=== PATIENT | female | born 1935 | race Caucasian/White ===

== ENCOUNTER → 2017-06-06 | Outpatient (CLI) | payer MEDICARE ==
[~2017-06-06] MED LIST: ADULT LOW DOSE81 MG PO; AVALIDE; CIPROFLOXACIN500 M1 PO; DIFLUCAN150 MG PO; FLUZONE 2045 MCG/011; HCTZ; HCTZ PO; INVANZ 1GM/NS 101 GM; LISINOPRIL40 MG PO; MACROBID 100 M100 M2 PO; NITROGLYCERIN0.4 MG SL; PNEUMOVAX25 MCG/0.5; PYRIDIUM200 MG PO; VITAMIN B-12500 MCG PO
--- NOTE | 2017-06-06 11:07 | 2DMMODE ---
[place] [address] 2 D/M-MODE ECHOCARDIOGRAM Name: TOAN GAMBLE Room: [facility]#: [id number] Admission: 06/06/17 Attend Phys: Marycarmen Murray DO Discharge: Date of : 39 Date of Service: 06/06/17 1106 Report #: [id number] THIS REPORT FOR: //name// APPROVED REPORT Study performed: 06/06/2017 09:09:43 EXAM: Comprehensive 2D, Doppler, and color-flow Echocardiogram Patient Location: Out-Patient Status: routine BSA: 2.02 HR: 72 bpm BP: 138/90 mmHg Other Information Study Quality: Good Indications Murmur 2D Dimensions LVEF(%): 57.42 (>50%) IVSd: 12.13 (7-11mm) LVOT Diam: 20.26 (18-24mm) LVDd: 37.39 mm PWd: 11.58 (7-11mm) Ascending Ao: 33.50 (22-36mm) LVDs: 26.32 (25-40mm) Aortic Root: 28.86 mm Saleem's LVEF: 57.42 % Volumes Left Atrial Volume (Systole) LA ESV Index: 22.00 mL/m2 Aortic Valve AoV Peak Ronnell.: 1.41 m/s AO Peak Gr.: 7.97 mmHg LVOT Max P.03 mmHg AO Mean Gr.: 4.49 mmHg LVOT Mean P.07 mmHg LVOT Max V: 1.23 m/s AO V2 VTI: 27.90 cm LVOT Mean V: 0.81 m/s ABA (VTI): 3.25 cm2 LVOT V1 VTI: 28.12 cm Mitral Valve MV Peak Gr.: 10.25 mmHg MV Mean Gr.: 2.75 mmHg E/A Ratio: 0.54 [place] [address] 2 D/M-MODE ECHOCARDIOGRAM Name: TOAN GAMBLE MASON Room: [facility]#: [id number] Admission: 06/06/17 Attend Phys: Marycarmen Murray DO Discharge: Date of : 39 Date of Service: 06/06/17 1106 Report #: [id number] MV Decel. Time: 302.50 ms MV E Max Ronnell.: 0.78 m/s MV PHT: 87.73 ms MVA (PHT): 2.51 cm2 TDI E/Lateral E': 8.67 E/Medial E': 15.60 Medial E' Ronnell.: 0.05 m/s Lateral E' Ronnell.: 0.09 m/s Pulmonary Valve PV Peak Ronnell.: 1.40 m/s PV Peak Gr.: 7.87 mmHg Tricuspid Valve TR Peak Gr.: 13.27 mmHg RVSP: 18.27 mmHg Left Ventricle The left ventricle is normal size. There is normal LV segmental wall motion. Mild concentric left ventricular hypertrophy. Left ventricular systolic function is normal. The left ventricular ejection fraction is within the normal range. LVEF is 55-60%. Grade I - abnormal relaxation pattern. Right Ventricle The right ventricle is normal size. The right ventricular systolic function is normal. Atria The left atrium size is normal. The right atrium size is normal. Aortic Valve Aortic valve is mildly calcified. Trace aortic regurgitation. There is no aortic valvular stenosis. Mitral Valve Moderate mitral annular calcification. Mild mitral regurgitation. No evidence of mitral valve stenosis. Tricuspid Valve The tricuspid valve is normal in structure. Mild tricuspid regurgitation. The RVSP is 25____ mmHg. Pulmonic Valve The pulmonary valve is normal in structure. Mild [place]mon[place] [address] 2 D/M-MODE ECHOCARDIOGRAM Name: TOAN GAMBLE Room: [facility] Garza#: [id number] Admission: 06/06/17 Attend Phys: Marycarmen Murray DO Discharge: Date of : 39 Date of Service: 06/06/17 1106 Report #: [id number] Great Vessels The aortic root is normal in size. IVC is normal in size and collapses with >50% inspiration Pericardium There is no pericardial effusion. <Conclusion> LVEF is 55-60%. Mild concentric left ventricular hypertrophy. Aortic valve is mildly calcified. Mild mitral regurgitation. <ELECTRONICALLY SIGNED> By: Paolo Ng MD, FACC 06/06/17 1106 1106 1106 Paolo Ng MD, FACC /INF
== END ==
LOC: M.CRD 08:36
DX: I08.1 Rheumatic disorders of both mitral and tricuspid valves (principal); I70.0 Atherosclerosis of aorta; K21.9 Gastro-esophageal reflux disease without esophagitis; I10 Essential (primary) hypertension

== ENCOUNTER → 2017-12-10 | Outpatient (CLI) | payer MEDICARE | LOC: M.INFUS 08:00 | DX: N39.0 Urinary tract infection, site not specified (principal); B96.4 Proteus (mirabilis) (morganii) as the cause of diseases classified elsewhere ==

== ENCOUNTER → 2017-12-11 | Outpatient (CLI) | payer MEDICARE | LOC: M.INFUS 08:00 | DX: N39.0 Urinary tract infection, site not specified (principal); B96.4 Proteus (mirabilis) (morganii) as the cause of diseases classified elsewhere ==

== ENCOUNTER 2017-12-12 19:28 | Emergency (ER) | payer MEDICARE ==
[~2017-12-12] VITALS: Ht 177.8 cm; Wt 81.7 kg
[~2017-12-12 19:28] MED LIST changes: -INVANZ 1GM/NS 101 GM
[2017-12-12] MEDS ORDERED: INVANZ 1GM/NS 101 GM (19:47)
[2017-12-12 21:16] VITALS: BP 144/79
== END 2017-12-12 21:18 | disposition home or self-care (01) ==
LOC: M.ERS 19:28
DX: L50.9 Urticaria, unspecified (principal); I10 Essential (primary) hypertension; Z96.653 Presence of artificial knee joint, bilateral; Z90.710 Acquired absence of both cervix and uterus; Z87.440 Personal history of urinary (tract) infections; Z88.4 Allergy status to anesthetic agent; Z88.2 Allergy status to sulfonamides

== ENCOUNTER → 2017-12-12 | Outpatient (CLI) | payer MEDICARE ==
[2017-12-12 12:20] VITALS: BP 117/62
--- NOTE | 2017-12-12 14:36 | NUR ---
PICC INTACT AND PATENT WITH GOOD BRISK BLOOD RETURN AND EASY FLUSH. INFUSION COMPLETED AND TOLERATED WELL. PICC FLUSHED POST INFUSION. DENIES NEEDS AT DISCHARGE.
== END ==
LOC: M.INFUS 01:17
DX: N39.0 Urinary tract infection, site not specified (principal); B96.4 Proteus (mirabilis) (morganii) as the cause of diseases classified elsewhere

== ENCOUNTER → 2017-12-13 | Outpatient (CLI) | payer MEDICARE ==
[~2017-12-13] MED LIST changes: +INVANZ 1GM/NS 101 GM
[2017-12-13 13:20] VITALS: BP 120/74
[2017-12-13 13:58] LABS: HEMATOCRIT 41.3 % (37.0-47.0); HEMOGLOBIN 13.6 gm/dL (12.0-15.0); MCH 30.9 pg (26.0-34.0); MCHC 32.9 g/dL (28.0-37.0); MCV 93.7 fL (80.0-100.0); MPV 8.1 fl. (7.2-11.1); RBC 4.4 mil/uL (4.20-5.00); RDW-CV 13.6 % (10.5-14.5); WBC 6.9 thou/uL (4.0-11.0)
[2017-12-13 14:06] LABS: CALCIUM 9.3 mg/dL (8.5-10.1); CREATININE 0.8 mg/dL (0.6-1.3); POTASSIUM 3.7 mmol/L (3.5-5.1)
--- NOTE | 2017-12-13 14:41 | NUR ---
ARRIVED AMBULAOTRY. MOTED THAT PT WAS SEEN IN ED LAST NIGHT FOR HIVES AND TINGLING OF LIPS AND TOUNGE. PT REPORTS THINKING IT IS FROM [facility] THERAPY. CALL PLACED TO DR. PEREZ'S OFFICE. DR. PEREZ OOT AND NOT BACK UNTIL 12/19/17. OFFICE STAFF REPORT DR GERARDO MCNAMARA COVERING. CALL PLACED TO DR. MCNAMARA'S OFFICE. SPOJE WITH DR. MCNAMARA DIRECTLY. NEW ORDERS RECIEVED FOR LAB WORK, UA, D/C INVANZ, AND START GYNTAMYCIN 180MG IV DAILY. FAX LAB RESULTS TO [phone] CALL LABS IF CR ABOVE 1.5. PT UPDATED. VOCIED UNDERSTANDIGN AND AGREED. PHARMACY NOTOFOED OF ATB CHANGE. LABS DRAWN FROM PICC AND CR NOTED TO BE 0.8. GENTAMYCIN INFUSED WITH OUT DIFFICULTY. DENIES ANY ADVERSE REACTION AT THIS TIME. DISCAHRGE INSTRUCTION REVIEWED. DENIES QUESTIONS OR NEEDS.
[2017-12-13 15:00] LABS: URINE BILIRUBIN NEGATIVE (Negative); URINE BLOOD NEGATIVE (Negative); URINE CLARITY CLEAR; URINE COLOR YELLOW; URINE GLUCOSE-RANDOM NEGATIVE (Negative); URINE KETONES NEGATIVE (Negative); URINE LEUKOCYTES-REFLEX NEGATIVE (Negative); URINE NITRITE-REFLEX NEGATIVE (Negative); URINE PROTEIN NEGATIVE (Negative); URINE UROBILINOGEN 0.2 E.U./dl (0.2-1.0)
== END ==
LOC: M.INFUS 03:07
PROVIDERS: Internal Medicine Infectious Disease
DX: N39.0 Urinary tract infection, site not specified (principal); B96.4 Proteus (mirabilis) (morganii) as the cause of diseases classified elsewhere

== ENCOUNTER → 2017-12-14 | Outpatient (CLI) | payer MEDICARE ==
--- NOTE | 2017-12-14 12:10 | NUR ---
ARRIVED AMBULATYORY. MADE SELF COMFORTABLE IN RECLINER. PT HERE FOR GENTAMYCIN INFUSION 180 MG DAILY FOR TEN DAYS. PT HAD FIRST GENTAMYCIN INFUSION YESTERDAY. GENTAMYCIN ANTIBIOTIC INFUSED W/OUT DIFFICULTY. DENIES ANY ADVERSE REACTION AT THIS TIME. INSTRUCTIONS REVIEWED W/PT FOR TOMORROW'S ANTIBIOTIC DOSE. DENIES QUESTIONS OR NEEDS. PT LEFT AMBULATORY W/STEADY GAIT FOR D/C HOME TO SELF CARE.
[2017-12-14 12:14] VITALS: BP 108/70
== END ==
LOC: M.INFUS 02:52
DX: N39.0 Urinary tract infection, site not specified (principal); B96.4 Proteus (mirabilis) (morganii) as the cause of diseases classified elsewhere

== ENCOUNTER → 2017-12-15 | Outpatient (CLI) | payer MEDICARE ==
[2017-12-15 12:30] VITALS: BP 122/73
--- NOTE | 2017-12-15 13:42 | NUR ---
1215:PT. ARRIVED TO PREOP AREA FOR OUTPATIENT INFUSION. RT. UPPER ARM PICC LINE FLUSHED WITH NS, ASPIRATED BRISK BLOOD RETURN, THEN FLUSHED AGAIN. IV GENTAMYCIN STARTED AT 1249. INFUSION STOP TIME 1340. PICC LINE THEN FLUSHED WITH 20ML NS. 1342:PT. LEFT AMBULATORY WITH HER IN STABLE CONDIITON.
== END ==
LOC: M.INFUS 06:22
DX: N39.0 Urinary tract infection, site not specified (principal); B96.4 Proteus (mirabilis) (morganii) as the cause of diseases classified elsewhere

== ENCOUNTER → 2017-12-16 | Outpatient (CLI) | payer MEDICARE ==
--- NOTE | 2017-12-16 12:22 | NUR ---
PATIENT ARRIVAL AMBULATORY FROM HOME WITH SPOUSE TO PREOP FOR OP INFUSION. MADE SELF COMFORTABLE IN RECLINER. CALL LIGHT AND REMOTE GIVEN TO PATIENT. HISTORY AND ORDERS REVIEWED. REASSESSMENT AND VS OBTAINED. RT UPPER ARM PICC LINE DRESSING CHANGED AND NEW STATLOCK APPLIED. BRISK BLOOD RETURN OBTAINED FROM PICC AND FLUSHES WELL. PHARMACY MIXING ANTIBIOTIC.
[2017-12-16 12:23] VITALS: BP 111/69
--- NOTE | 2017-12-16 13:53 | NUR ---
ANTIBIOTIC INFUSION COMPLETED WITHOUT DIFFICULTY. PATIENT DENIES CONCERNS. PICC LINE FLUSHED WITH NS 20MLS. PATIENT DEPARTS FOR HOME SPOUSE AT 1357 AMBULATORY.
== END ==
LOC: M.INFUS 01:39
DX: N39.0 Urinary tract infection, site not specified (principal); B96.4 Proteus (mirabilis) (morganii) as the cause of diseases classified elsewhere

== ENCOUNTER → 2017-12-17 | Outpatient (CLI) | payer MEDICARE | LOC: M.INFUS 08:00 | DX: N39.0 Urinary tract infection, site not specified (principal); B96.4 Proteus (mirabilis) (morganii) as the cause of diseases classified elsewhere ==

== ENCOUNTER → 2017-12-18 | Outpatient (CLI) | payer MEDICARE | LOC: M.INFUS 08:00 | DX: N39.0 Urinary tract infection, site not specified (principal); B96.4 Proteus (mirabilis) (morganii) as the cause of diseases classified elsewhere ==

== ENCOUNTER → 2018-06-19 | Outpatient (CLI) | payer MEDICARE | LOC: M.CT 12:50 | DX: K57.90 Diverticulosis of intestine, part unspecified, without perforation or abscess without bleeding (principal); R10.9 Unspecified abdominal pain ==